=== PATIENT | female | born 1960 | race Caucasian/White ===

== ENCOUNTER 2017-04-19 08:50 | Day surgery (SDC) | payer OTHER ==
[~2017-04-19] VITALS: Ht 162.6 cm; Wt 81.8 kg
[~2017-04-19 08:50] MED LIST: AMLO5TAB4 PO; ASPI-664 PO; CALC500T12 PO; CHLO1CAP PO; DOCU-159 PO; FAMO-96 PO; LORA10TA3 PO; LOSA50TA6 PO; METF500T4 PO; METO25TA7 PO; NAPR-688 PO; SIMV20TA2 PO; TRIA1TAB PO
[2017-04-19 09:58] VITALS: Ht 162.6 cm; Wt 81.8 kg
[2017-04-19 10:35] VITALS: BP 139/73; PULSE 63; RESP 20
[2017-04-19] MEDS ORDERED: LIDOCAINE 2% (SDV) 5 ML INJ ONE (10:39)
[2017-04-19] MEDS ORDERED: PROPOFOL 60 ML ONE (10:39)
--- NOTE | 2017-04-19 11:09 | OPPN ---
Date/Time of Note Date/Time of Note DATE: 04/19/17 TIME: 10:35 Operative Report Preoperative Diagnosis Chronic heartburn Screening Postoperative Diagnosis Gastroesophageal reflux disease Gastritis with erosions Operation/Procedure Performed Esophagogastroduodenoscopy and biopsy Colonoscopy Provider: HERMELINDA LÓPEZ MD Anesthesia Type: MAC Estimated blood loss: none Transfusion Required: no Specimens Gastric mucosal biopsy Grafts/Implants: none Complications: no HERMELINDA LÓPEZ MD Apr 19, 2017 11:09
--- NOTE | 2017-04-19 14:20 | GILP ---
DATE OF PROCEDURE: 04/19/2017 PROCEDURES PERFORMED: 1. Esophagogastroduodenoscopy and biopsy. 2. Colonoscopy. SURGEON: Donna Jamison MD PREOPERATIVE DIAGNOSES: 1. Chronic heartburn. 2. Screening colonoscopy. POSTOPERATIVE DIAGNOSES: 1. Gastroesophageal reflux disease. 2. Gastritis with erosions. 3. Gastric mucosal biopsies were taken for Helicobacter pylori test. 4. Colonoscopy all the way to the cecum. 5. Internal hemorrhoids. 6. No colon neoplasm was identified. INDICATION: Ms. Lissy Groves is a 56-year-old female patient who had chronic heartburn not responding to therapy. The patient also needed a screening colonoscopy. The procedures and possible complications were well explained to the patient. She understood and consented to the procedure. DESCRIPTION OF PROCEDURE: Under influence of anesthesia, the gastroscope was carefully introduced into the esophagus. Under direct vision, it was advanced to the stomach, into the pylorus, into the duodenal bulb, and descending duodenum. FINDINGS: Esophagus, the patient had gastroesophageal reflux disease. Stomach, she had gastritis with erosions. Gastric mucosal biopsies were taken for Helicobacter pylori test. Duodenum was normal. The colonoscope was carefully introduced in the rectum and under direct vision, it was advanced all the way to the cecum. Findings, the patient had internal hemorrhoids. No colon neoplasm was identified. She tolerated the procedures very well. There was no complication from the procedures. At the end of procedure, she was awake with stable vital signs and she was discharged home to the care of her family. IMPRESSION: Please see postop diagnoses. PLAN: 1. Omeprazole 40 mg by mouth in morning. 2. Await Helicobacter pylori test report. 3. Next screening colonoscopy in 10 years. Dictated By: MD FANNY Bhandari/manny/negrito /Document#: [id number]
== END 2017-04-19 18:02 | disposition home or self-care (01) ==
LOC: GIL 08:50
PROVIDERS: ATTEND Internal Medicine Gastroenterology
DX: Z12.11 Encounter for screening for malignant neoplasm of colon (principal); K21.9 Gastro-esophageal reflux disease without esophagitis; K29.60 Other gastritis without bleeding; K64.8 Other hemorrhoids; I10 Essential (primary) hypertension; E11.9 Type 2 diabetes mellitus without complications; E78.5 Hyperlipidemia, unspecified; E66.01 Morbid (severe) obesity due to excess calories; Z68.31 Body mass index [BMI] 31.0-31.9, adult
CPT/HCPCS: 43239; 45378; 82962; 87081; Z7610